=== PATIENT | male | born 1950 | race Caucasian/White ===

== ENCOUNTER 2019-02-18 07:50 | Day surgery (SDC) | payer BC ==
[2019-02-18 08:11] VITALS: BMI 29.5
--- NOTE | 2019-02-18 08:21 | HP ---
CHIEF COMPLAINT: left groin swelling for at least 2.5 years PCP:Kendra HISTORY OF PRESENT ILLNESS: left groin swelling for > 2.5 years; he was seen in the office for this 08/10/18 and found to have a left inguinal hernia; surgery was scheduled and cancelled by the patient and he recently called to state he was now ready to have the surgery; he has no new c/o; his hernia is interfering w/his ADL. He has NOC. He has no GI/ c/o. PAST MEDICAL HISTORY: vertigo/Barretts esophagus PAST SURGICAL HISTORY: open marcell; umbilical hernia repair; open appendectomy Social History: Smoking:none Alcohol:none Drugs: none Family History: non contributory Allergies No Known Drug Allergies Allergy (Verified 02/18/19 08:13) HOME MEDICATIONS: Home Medications Medication Instructions Recorded Aspirin Coated [Ecotrin -] 81 mg PO DAILY 02/17/19 Cyanocobalamin (Vitamin B-12) 2,500 mcg PO DAILY 02/17/19 [Vitamin B12] Dexlansoprazole [Dexilant] 60 mg PO DAILY 02/17/19 REVIEW OF SYSTEMS CONSTITUTIONAL: Absent: fever, chills, diaphoresis, generalized weakness, malaise, loss of appetite, weight change HEENT: Absent: rhinorrhea, nasal congestion, throat pain, throat swelling, difficulty swallowing, mouth swelling, ear pain, eye pain, visual changes CARDIOVASCULAR: Absent: chest pain, syncope, palpitations, irregular heart rate, lightheadedness , peripheral edema RESPIRATORY: Absent: cough, shortness of breath, dyspnea with exertion, orthopnea, wheezing, stridor, hemoptysis GASTROINTESTINAL: Absent: abdominal pain, abdominal distension, nausea, vomiting, diarrhea, constipation, melena, hematochezia GENITOURINARY: Absent: dysuria, frequency, urgency, hesitancy, hematuria, flank pain, genital pain MUSCULOSKELETAL: Absent: myalgia, arthralgia, joint swelling, back pain, neck pain SKIN: Absent: rash, itching, pallor HEMATOLOGIC/IMMUNOLOGIC: Absent: easy bleeding, easy bruising, lymphadenopathy, frequent infections ENDOCRINE: Absent: unexplained weight gain, unexplained weight loss, heat intolerance, cold intolerance NEUROLOGIC: Absent: headache, focal weakness or paresthesias, dizziness, unsteady gait, seizure, mental status changes, bladder or bowel incontinence PSYCHIATRIC: Absent: anxiety, depression, suicidal or homicidal ideation, hallucinations. PHYSICAL EXAMINATION Vital Signs - 24 hr 02/18/19 02/18/19 08:11 08:12 Temperature 97.7 F Pulse Rate 65 Respiratory 18 Rate Blood Pressure 103/68 O2 Sat by Pulse 98 Oximetry (%) GENERAL: Awake, alert, and fully oriented, in no acute distress. HEAD: Normal with no signs of trauma. EYES: Pupils equal, round and reactive to light, extraocular movements intact, sclera anicteric, conjunctiva clear. No lid lag. LUNGS: Breath sounds equal, clear to auscultation bilaterally. No wheezes, and no crackles. No accessory muscle use. HEART: normal S1 and S2 without murmur, rub or gallop. ABDOMEN: Soft, nontender, not distended, normoactive bowel sounds, no guarding, no rebound, no masses. No hepatomegaly or splenomegaly. RUQ scar; umbilical scar; no abdominal wall hernias. Reducible LIH; no RIH; genitalia are normal; both testes are descended MUSCULOSKELETAL: Normal range of motion at all joints. No bony deformities or tenderness. No CVA tenderness. UPPER EXTREMITIES: 2+ pulses, warm, well-perfused. No cyanosis. No clubbing. No peripheral edema. LOWER EXTREMITIES: 2+ pulses, warm, well-perfused. No calf tenderness. No peripheral edema. NEUROLOGICAL: Cranial nerves II-XII intact. Normal speech. Normal gait. PSYCHIATRIC: Cooperative. Good eye contact. Appropriate mood and affect. SKIN: Warm, dry, normal turgor, no rashes or lesions noted, normal capillary refill. ASSESSMENT/PLAN: Left inguinal hernia; for open repair LIH w/mesh; r/b/t/a's d/ w him;recurrence d/w as well and he wishes to proceed. Fernando Palencia MD FACS Visit type - Emergency Visit Emergency Visit: No - New Patient This patient is new to me today: No - Critical Care Critical Care patient: No
[2019-02-18] MEDS ORDERED: ceFAZolin SODIUM 1 GM VIAL IVPB ONE (09:46)
[2019-02-18] MEDS ORDERED: LIDOCAINE HCL 1%, 10 MG/ML (20ML VIAL) NR ONE ×2 (09:55)
[2019-02-18] MEDS ORDERED: BUPIVACAINE HCL/PF 0.5% (5MG/ML) 10 ML VIAL IJ ONE ×2 (09:55)
--- NOTE | 2019-02-18 10:42 | OP ---
Operative Note - Note: Operative Date: 02/18/19 Pre-Operative Diagnosis: left inguinal hernia Operation: repair left inguinal hernia with mesh Findings: indirect LIH and weak floor Post-Operative Diagnosis: Same as Pre-op Surgeon: Fernando Palencia Pr Manager: Sulema Walter Anesthesiologist/MARINE GEOLOGIST: Juan Alejo Anesthesia: General Specimens Removed: hernia sac Estimated Blood Loss (mls): 10
[2019-02-18] MEDS ORDERED: ONDANSETRON 4 MG/2 ML VIAL IVPUSH PRN (11:06)
[2019-02-18] MEDS ORDERED: ACETAMINOPHEN 1000 MG/100 ML VIAL (NON FORMULARY) IVPB ONE (11:06)
[2019-02-18] MEDS ORDERED: oxyCODONE HCL 5 MG TABLET PO PRN (11:06)
[2019-02-18] MEDS ORDERED: ACETAMINOPHEN INJECTION 100 ML IVPB ONE (11:10)
[2019-02-18] MEDS ORDERED: LACTATED RINGERS SOLUTION 1,000 ML IV SCH (11:15)
--- NOTE | 2019-02-18 11:40 | SURG ---
Surgery Soil Conservation Technician Note Soil Conservation Technician: Sulema Walter PA-C (Suzy) Date of Service: 02/18/19 Diagnosis: left inguinal hernia Procedure: repair left inguinal hernia with mesh I was present for the entirety of the operative procedure. For further detail, please refer to operative report. Visit type - Case Type Case Type: Scheduled - Emergency Emergency Visit: No - New patient This patient is new to me today: Yes Date on this admission: 02/18/19 - Critical Care Critical Care patient: No
[2019-02-18 12:42] VITALS: TEMP 97.3
[2019-02-18] MEDS ORDERED: oxyCODONE HCL 5 MG TABLET PO ONE (12:43)
[2019-02-18 14:10] VITALS: BP 107/71; PULSE 59
--- NOTE | 2019-02-21 11:16 | PATH ---
Surgical Pathology Report Patient Name: STEPHEN PUENTE [facility]. Rec. #: [id number] /Age/Gender: 1950 (Age: 68) / M Account: [id number] Location: [facility] SURGICAL Taken: 02/18/2019 Received: 02/18/2019 Reported: 02/21/2019 Physicians: Fernando Palencia MD Specimen(s) Received HERNIA SAC Clinical History Left inguinal hernia Final Diagnosis SOFT TISSUE, LEFT INGUINAL, EXCISION: HERNIA SAC. Electronically Signed Deandre Ariza M.D. Gross Description Received in formalin labeled "hernia sac," is a 4.5 x 1.6 x 0.3 cm carty brown portion of the fibromembranous tissue, consistent with a hernia sac. Nutrition Teacher sections are submitted in one cassette. /02/18/201902/18/2019
--- NOTE | 2019-02-21 18:08 | OP ---
DATE OF OPERATION: 02/18/2019 PREOPERATIVE DIAGNOSIS: Left inguinal hernia. POSTOPERATIVE DIAGNOSIS: Left inguinal hernia. PROCEDURE: Repair of left inguinal hernia with mesh. SURGEON: Fernando Palencia MD INJECTION MOLDING PROCESS TECHNICIAN: Dari Walter PA-C ANESTHESIA: General. OPERATIVE FINDINGS: There was an indirect inguinal hernia and a weak attenuated floor. The rest of the findings were unremarkable. PROCEDURE: The patient was placed on the operating room table in supine position and after the induction of general anesthesia, his left lower quadrant of the abdomen and groin were prepped with ChloraPrep and draped in sterile fashion. A timeout was taken, and incision was mapped out in the left groin. The area was infiltrated with 1% xylocaine and 0.5% Marcaine in equal concentration. Incision made with a scalpel and taken down through skin, subcutaneous tissue, and Dakota fascia. The external oblique was divided proximally and then distally through the external ring. The cord structures and nerve were elevated to the level of the pubic tubercle and a Ana drain placed around them for retraction and identification purposes. The previously noted findings were observed. The sac was dissected from the cord structures all the way up to the internal ring where high ligation was carried out with 2-0 Vicryl suture. Redundant sac was excised and sent for pathological examination. A piece of Parietex ProGrip mesh was fashioned into the inguinal canal and anchored at the pubic tubercle, shelving edge, and conjoint tendon respectively with interrupted 2-0 Prolene. A keyhole was created for the cord structures and the tails of the mesh brought above the level of the internal ring and crossed and then anchored there with interrupted 2-0 Prolene. Hemostasis was checked for and noted to be good. The wound was copiously irrigated with sterile saline. The cord structures and nerve were returned to their normal anatomic position, and the external oblique fascia closed using continuous 2-0 Vicryl recreating the external ring. Dakota's fascia was reapproximated with interrupted 2-0 Vicryl. The deep dermis with interrupted 3-0 Vicryl, and the skin edges with 4-0 Biosyn in subcuticular fashion. Steri-Strips and dry sterile dressings were placed, and the procedure terminated at this point. The patient aroused from general anesthesia and transferred to the postanesthesia care unit in stable condition awake and alert. ESTIMATED BLOOD LOSS: Minimal. DRAINS: None. SPECIMENS: Hernia sac to Pathology. I, Fernando Palencia MD, was physically present in the operating room from the time the patient was placed on the operating room table until he was transferred to the postanesthesia care unit in my accompaniment. MD DANA Foy/[id number]
== END 2019-02-18 13:45 | disposition home or self-care (01) ==
LOC: JASU-SURG 07:50
PROVIDERS: ATTEND Surgery
PROC: 0YU60JZ Supplement Left Inguinal Region with Synthetic Substitute, Open Approach (ICD-10-PCS; principal; 2019-02-18 09:00)
DX: K40.90 Unilateral inguinal hernia, without obstruction or gangrene, not specified as recurrent (principal)
CPT/HCPCS: 88302-TC; 94760; J0131